=== PATIENT | female | born 1985 | race African-American/Black ===

== ENCOUNTER 2016-10-14 22:25 | Emergency (ER) | payer BC ==
[2016-10-14] MEDS ORDERED: POLYMYXIN B SULF/TRIMETHOPRIM 100 DROP BTL ONE (23:13)
[2016-10-14] MEDS ORDERED: POLYMYXIN B SULF/TRIMETHOPRIM 100 DROP BTL EACHEYE ONE (23:13)
--- NOTE | 2016-10-14 23:15 | ERNOTE ---
ENT HPI Date of Service: 10/14/16 Presenting Symptoms: other - itchiness and irritationof both eyes Time Seen by Provider: 10/14/16 23:09 Source: patient - Immun/Allergies/Home Medications Immunizations: IMMUNIZATION HX Immunizations Up to Date Yes History of Influenza Vaccine No Hx Pneumococcal Vaccination No Allergies/Adverse Reactions: Allergies Allergy/AdvReac Type Severity Reaction Status Date / Time No Known Allergies Allergy Unverified 10/14/16 22:27 Home Medications: HOME MEDICATIONS Amlodipine Besylate 10 mg PO DAILY 10/14/16 [Last Taken Unknown] - History of Present Illness Narrative: itching and irritation and redness of both eyes Review of Systems - Review of Systems Constitutional: Present: no symptoms reported EYE: Present: see HPI - Patient's Past Medical History Patient History - Medical: Obesity Patient History - Cardiac/Respiratory: Hypertension Patient History - Cancer: No Hx of Cancer Patient History - Surgical Procedures: , D & C Patient History - Other: None LMP (females 10-50): this week - Social History Living Situations: home Abuse History: No History of abuse Psych History: No pertinent hx Smoking Status: Never smoker Alcohol Use: occasionally Drug Use: none - Immunizations Immunizations Up to Date: Yes Hx Pneumococcal Vaccination: No History of Influenza Vaccine: No Physical Exam - Physical Exam General Appearance: Present: wd/wn, alert, no apparent distress Eye Exam: Normal inspection: right, Other: bilateral - Both conjunctiva are injected and red and weepy. Respiratory: Present: no respiratory distress, normal breath sounds, no accessory muscle use, chest nontender Cardiovascular/Chest: Present: regular rate, rhythm, no murmur, normal peripheral pulses ED Progress - Vital Signs Patient's Vital Signs:: I have reviewed the patient's vital signs. Vital Signs: Vital Signs 10/14/16 22:28 Temperature 36.7 C Pulse Rate 85 Respiratory 18 Rate Blood Pressure 185/118 O2 Sat by Pulse 99 Oximetry - Progress/Reassessment Chief Complaint: Eye Injury/Trauma Departure Clinical Impression: Conjunctivitis Qualifiers: Conjunctivitis type: other Laterality: bilateral Qualified Code(s): H10.89 - Other conjunctivitis - Departure Disposition: Home self-care Condition: Good Instructions: Bacterial Conjunctivitis, [id number]
[2016-10-14 23:46] VITALS: BP 180/112
== END 2016-10-14 23:30 | disposition home or self-care (01) ==
LOC: ER 22:25
DX: H10.89 Other conjunctivitis (principal); I10 Essential (primary) hypertension